=== PATIENT | female | born 1970 | race Hispanic/Latino ===

== ENCOUNTER 2017-09-07 22:59 | Emergency (ER) | payer BC ==
[2017-09-07] MEDS ORDERED: DiphenhydrAMINE 50 mg/ml Inj ONE (23:10)
[2017-09-07 23:11] VITALS: BP 133/83; PULSE 94; RESP 18; TEMP 97.9; O2SAT 98
--- NOTE | 2017-09-07 23:16 | ED PDOC ---
HPI: Allergic Reaction Time Seen by Provider: 09/07/17 23:10 Chief Complaint (Nursing): Allergic Reaction Chief Complaint (Provider): allergic reaction History Per: Patient History/Exam Limitations: no limitations Onset/Duration Of Symptoms: Mins Current Symptoms Are (Timing): Still Present Possible Cause: Food Associated Symptoms: Swelling, Trouble Swallowing, Redness Additional History Per: Patient Additional Complaint(s): 47 y/o female presents for evaluation of acute allergic reaction. Patient states she ate food without knowing it had pignoli nuts in it around 20:30, states around 22:30 she began to feel her face red and swollen and felt her throat to be tight, with nasal congestion. Patient attempted to take Benadryl but vomited. Denies chest pain, shortness of breath, palpitations, abdominal pain. Past Medical History Reviewed: Historical Data, Nursing Documentation, Vital Signs Vital Signs: Last Vital Signs Temp 97.9 F 09/07/17 23:09 Pulse 94 H 09/07/17 23:09 Resp 18 09/07/17 23:09 BP 133/83 09/07/17 23:09 Pulse Ox 98 09/07/17 23:09 - Medical History PMH: No Chronic Diseases - Surgical History Surgical History: No Surg Hx - Family History Family History: States: No Known Family Hx - Home Medications Home Medications: Ambulatory Orders Medication Instructions Recorded Famotidine [Pepcid] 20 mg PO BID #8 tab 09/08/17 Fluticasone Nasal [Flonase] 2 actuation NS DAILY #1 bottle 09/08/17 Prednisone 50 mg PO DAILY #4 tablet 09/08/17 - Allergies Allergies/Adverse Reactions: Allergies Allergy/AdvReac Type Severity Reaction Status Date / Time black pepper Allergy SHORTNESS Verified 09/07/17 23:02 OF BREATH tree nut Allergy SHORTNESS Verified 09/07/17 23:02 OF BREATH Review of Systems ROS Statement: Except As Marked, All Systems Reviewed And Found Negative ENT: Positive for: Throat Pain Skin: Positive for: Rash Physical Exam - Reviewed Nursing Documentation Reviewed: Yes Vital Signs Reviewed: Yes - Physical Exam Appears: Positive for: Well, Non-toxic, Uncomfortable Head Exam: Positive for: ATRAUMATIC, NORMAL INSPECTION, NORMOCEPHALIC Skin: Positive for: Rash (erythema noted to face with diffuse swelling) Eye Exam: Positive for: Normal appearance ENT: Positive for: Normal ENT Inspection, Nasal Congestion, Other (airway patent ) Cardiovascular/Chest: Positive for: Regular Rate, Rhythm Respiratory: Positive for: Normal Breath Sounds Gastrointestinal/Abdominal: Positive for: Normal Exam Back: Positive for: Normal Inspection Extremity: Positive for: Normal ROM Neurologic/Psych: Positive for: Alert, Oriented - ECG O2 Sat by Pulse Oximetry: 98 - Progress ED Course And Treament: IV solumedrol, IV benadryl, IV pepcid 00:30 Patient states she is feeling better. Redness improved. Vitals stable. Patient speaking in full sentences. Patient educated on findings, discharged with rx Prednisone, Pepcid, flonase Advised to take Benadryl PRN. Follow up PMD 2-3 days. Return precautions given Disposition - Clinical Impression Clinical Impression: Allergic reaction - Patient ED Disposition Is Patient to be Admitted: No Counseled Patient/Family Regarding: Diagnosis, Need For Followup, Rx Given - Disposition Disposition: Routine/Home Disposition Time: 00:25 Condition: IMPROVED Prescriptions: Famotidine [Pepcid] 20 mg PO BID #8 tab Fluticasone Nasal [Flonase] 2 actuation NS DAILY #1 bottle Prednisone 50 mg PO DAILY #4 tablet Instructions: Food Allergy (ED) Forms: [employer] ([place])
[2017-09-07] MEDS: DiphenhydrAMINE 50 mg/ml Inj IV STA (23:18)
== END 2017-09-08 01:30 | disposition home or self-care (01) ==
LOC: H.ER 22:59
DX: T78.40XA Allergy, unspecified, initial encounter (principal)
CPT/HCPCS: 81025; 82948; 96374; 96375; 99282; J1200; J2405; J2930